=== PATIENT | male | born 1970 | race Caucasian/White ===

== ENCOUNTER 2019-07-21 08:36 | Emergency (ER) | payer BC ==
--- NOTE | 2019-07-21 09:25 | EDM.PDOC ---
ED HPI GENERAL MEDICAL PROBLEM - General Chief Complaint: ENT Problem Stated Complaint: SINUS INFECTION Time Seen by Provider: 07/21/19 08:38 - History of Present Illness INITIAL COMMENTS - FREE TEXT/NARRATIVE: HISTORY AND PHYSICAL: History of present illness: This 48-year-old male with a past medical history of obesity/BMI greater than 30 , obstructive sleep apnea, atrial fibrillation, and hypertension presents emergency department complaining of bilateral sinus pain, increased pain in the face and forehead, and now severe pain in the left ear. Patient states that for the last 10 days this is gradually gotten worse. He has tried over-the- counter therapy without improvement. He denies any fevers, meningeal signs, or occipital or mastoid tenderness or pain. No vomiting. No other associated signs or symptoms. No other modifying, aggravating or alleviating factors. Review of systems: A 10-point review of systems, other than pertinent positives and negatives as stated per HPI, is otherwise negative. Past medical history: As per history of present illness and as reviewed below otherwise noncontributory. Surgical history: As per history of present illness and as reviewed below otherwise noncontributory. Social history: No reported history of drug or alcohol abuse. Family history: As per history of present illness and as reviewed below otherwise noncontributory. Physical exam: VITAL SIGNS: Reviewed. GENERAL: Appears to be in moderate pain HEAD: No signs of head trauma. EYES: Pupils are equal. Extraocular motions intact. EARS: The right TM is normal. Left TM has a serous otitis media with slight amount of erythema. No significant bulging. Bilateral external auditory canals are normal. No mastoid tenderness bilaterally. No lymphadenopathy. MOUTH: Oropharynx is normal. NECK: No adenopathy, no JVD. No meningeal signs full range of motion without tenderness CHEST: Chest with clear breath sounds bilaterally. No wheezes, rales, or rhonchi. CARDIAC: Regular rate and rhythm. Normal S1 and S2, without murmurs, gallops, or rubs. VASCULAR: Peripheral pulses normal and equal in all extremities. ABDOMEN: Soft, without detectable tenderness. No sign of distention. No rebound or guarding, and no masses palpated. MUSCULOSKELETAL: Good range of motion of all major joints. Extremities without clubbing, cyanosis or edema. NEUROLOGIC EXAM: Alert and oriented x 3. No focal sensory or motor deficits. Speech normal. Follows commands. PSYCHIATRIC: Mood normal. SKIN: No rash or lesions. Initial Differential Diagnosis & Plan: Sinusitis, bacterial sinusitis, viral sinusitis, meningitis, mastoiditis Patient has normal vital signs. He is not running a fever. He has had 10 days of symptoms. Because he has failed [id number] therapy I will start him on steroids, nasal Afrin for vasoconstriction and drainage, Tylenol for pain, and typical and atypical antibiotic coverage. He should follow-up with his doctor. I do not feel that these medications will adversely affect his Eliquis level. Definitive disposition and diagnosis as appropriate pending reevaluation and review of above. sinus Pain Score (Numeric/FACES): 3 - Related Data Allergies Allergy/AdvReac Type Severity Reaction Status Date / Time No Known Allergies Allergy Verified 07/21/19 08:44 Home Meds: Home Meds Acetaminophen [Tylenol Extra Strength] 1,000 mg PO Q6HR PRN #60 tablet 07/21/19 [Rx] Apixaban [Eliquis] 5 mg PO BID 07/21/19 [History] Doxycycline [Vibramycin] 100 mg PO BID 7 Days #14 tab 07/21/19 [Rx] Dronedarone HCl [Multaq] 400 mg PO BID 07/21/19 [History] Lactobacillus 3/Fos/Pantethine [Probiotic & Acidophilus] 1 each PO BID 30 Days # 60 capsule 07/21/19 [Rx] Metoprolol Succinate [[place] Sprinkle] 50 mg PO BID 07/21/19 [History] Oxymetazoline HCl [Afrin] 2 spray NS BEDTIME #1 spray 07/21/19 [Rx] cephALEXin [Keflex] 1,000 mg PO TID 7 Days #42 capsule 07/21/19 [Rx] predniSONE [Prednisone] 50 mg PO DAILY 5 Days #5 tablet 07/21/19 [Rx] Past Medical History HEENT History: Reports: None Cardiovascular History: Reports: Afib Respiratory History: Reports: None Gastrointestinal History: Reports: None Genitourinary History: Reports: None Musculoskeletal History: Reports: None Neurological History: Reports: None Psychiatric History: Reports: None Endocrine/Metabolic History: Reports: None Hematologic History: Reports: None Immunologic History: Reports: None Oncologic (Cancer) History: Reports: None Dermatologic History: Reports: None - Infectious Disease History Infectious Disease History: Reports: None - Past Surgical History Head Surgeries/Procedures: Reports: None HEENT Surgical History: Reports: None Cardiovascular Surgical History: Reports: None Respiratory Surgical History: Reports: None GI Surgical History: Reports: None Male Surgical History: Reports: None Endocrine Surgical History: Reports: None Neurological Surgical History: Reports: None Musculoskeletal Surgical History: Reports: Other (See Below) Oncologic Surgical History: Reports: None Dermatological Surgical History: Reports: None Social & Family History - Family History Family Medical History: Noncontributory - Tobacco Use Smoking Status *Q: Never Smoker Second Hand Smoke Exposure: No - Caffeine Use Caffeine Use: Reports: Soda - Recreational Drug Use Recreational Drug Use: No ED ROS ENT - Review of Systems Review Of Systems: Comprehensive ROS is negative, except as noted in HPI. (above ) ED EXAM, ENT - Physical Exam Exam: See Below (above) Course - Vital Signs Last Recorded V/S: Last Vital Signs Temp 96.4 F L 07/21/19 08:45 Pulse 65 07/21/19 08:45 Resp 18 07/21/19 08:45 BP 125/90 07/21/19 08:45 Pulse Ox 95 07/21/19 08:45 Departure - Departure Time of Disposition: 09:23 Disposition: Home, Self-Care 01 Condition: Good Clinical Impression: Sinusitis, History of atrial fibrillation - Discharge Information *PRESCRIPTION DRUG MONITORING PROGRAM REVIEWED*: Not Applicable *COPY OF PRESCRIPTION DRUG MONITORING REPORT IN PATIENT FAYE: Not Applicable Prescriptions: Acetaminophen [Tylenol Extra Strength] 1,000 mg PO Q6HR PRN #60 tablet PRN Reason: Pain cephALEXin [Keflex] 1,000 mg PO TID 7 Days #42 capsule Doxycycline [Vibramycin] 100 mg PO BID 7 Days #14 tab Lactobacillus 3/Fos/Pantethine [Probiotic & Acidophilus] 1 each PO BID 30 Days # 60 capsule Oxymetazoline HCl [Afrin] 2 spray NS BEDTIME #1 spray predniSONE [Prednisone] 50 mg PO DAILY 5 Days #5 tablet Referrals: PCP,Not In Area [Primary Care Provider] - Forms: ED Department Discharge Additional Instructions: The following information is given to patients seen in the emergency department who are being discharged to home. This information is to outline your options for follow-up care. We provide all patients seen in our emergency department with a follow-up referral. The need for follow-up, as well as the timing and circumstances, are variable depending upon the specifics of your emergency department visit. If you don't have a primary care physician on staff, we will provide you with a referral. We always advise you to contact your personal physician following an emergency department visit to inform them of the circumstance of the visit and for follow-up with them and/or the need for any referrals to a consulting specialist. The emergency department will also refer you to a specialist when appropriate. This referral assures that you have the opportunity for follow-up care with a specialist. All of these measure are taken in an effort to provide you with optimal care, which includes your follow-up. Under all circumstances we always encourage you to contact your private physician who remains a resource for coordinating your care. When calling for follow-up care, please make the office aware that this follow-up is from your recent emergency room visit. If for any reason you are refused follow-up, please contact the [facility] Emergency Department at and asked to speak to the emergency department charge nurse. Thank you for trusting us at [facility] with your health and care today. We hope you feel better soon. Please return immediately to the emergency department for fevers, vomiting, or any other concerns. It is especially important that you return if you have pain in your neck with range of motion or uncontrolled symptoms. We are always happy to see you. Please follow-up with your primary care doctor early this week. Sepsis Event Note - Evaluation Sepsis Screening Result: No Definite Risk - Focused Exam Vital Signs: Vital Signs Temp Pulse Resp BP Pulse Ox 07/21/19 08:45 96.4 F L 65 18 125/90 95 Date Exam was Performed: 07/21/19 Time Exam was Performed: :20
== END 2019-07-21 09:35 | disposition home or self-care (01) ==
LOC: MW.ED 08:36
DX: J32.9 Chronic sinusitis, unspecified (principal); I48.91 Unspecified atrial fibrillation; E66.9 Obesity, unspecified; Z68.41 Body mass index [BMI] 40.0-44.9, adult; Z79.899 Other long term (current) drug therapy
CPT/HCPCS: 99282; 99283